=== PATIENT | female | born 1960 | race Hispanic/Latino ===

== ENCOUNTER → 2018-11-05 | Day surgery (SDC) | payer OTHER ==
[~2018-11-05] MED LIST: FENTANYL CITRATE/PF 100MCG/2 ML INJ ONE; HYDROCHLOROTHIA25 MG PO; HYOSCYAMINE 0.125 MG TAB ONE; MIDAZOLAM HCL 2 MG/2 ML VIAL ONE; PROPOFOL IV EMULSION 10 MG/ML 50 ML VIAL ONE
--- OUTSIDE RECORDS SUMMARY | 2018-11-05 09:15 | XMS REPORT ---
Author [facility] Address Unknown Phone Unavailable Care Team Providers Care Imaging Analyst Name Role Phone Unavailable Unavailable Problems This patient has no known problems. Allergies, Adverse Reactions, Alerts This patient has no known allergies or adverse reactions. Medications This patient has no known medications. Results Test Description Test Time Test Comments Text Results Atomic Results Result Comments SCR MAMM BILATERAL TATIANA CAD DIGITAL 2018-05-29 10:23:44 - SCR MAMM BILATERAL TATIANA CAD DIGITALBILATERAL DIGITAL SCREENING MAMMOGRAM 3D/2D WITH CAD: 05/29/2018CLINICAL: Asymptomatic. Current mammographic images were evaluated by either a Xiimo M-Vu or an iCAD version 7.2 computer aided detection system. Comparison is made to exams dated 04/26/2017 mammogram, 04/18/2016 mammogram, and 01/24/2015 mammogram - [facility]. There are scattered fi broglandular tissues in both breasts. There is a biopsy clip in the left breast. No suspicious mass, architectural distortion, malignant type calcification, or lymph node abnormality detected. Breast architecture is stable compared to prior exams.IMPRESSION: NEGATIVEThere is no mammographic evidence of malignancy. Resume annual screening mammography in one year. Rick Hyatt M.D. ss/penrad:05/29/2018 10:23:44 Director Ship: Faith SLOAN, [facility]: BIRADS 1-2 Normal Mammogram BI-RADS: 1 Negative
[2018-11-05 15:30] VITALS: BP 147/91
--- NOTE | 2018-11-05 16:06 | Operative Report ---
DATE OF PROCEDURE: 11/05/2018 SURGEON: Johnnie Kingsley MD PROCEDURES: Colonoscopy and polypectomy. INDICATIONS FOR COLONOSCOPY: Colorectal cancer screening. MEDICATIONS: The patient was done under MAC, please see anesthesiologist's note. PROCEDURE IN DETAIL: With the patient in the left lateral decubitus position, a flexible fiberoptic Olympus colonoscope was inserted into the rectum with ease and advanced all the way to the cecum. One minute polyp was removed per the cold biopsy forceps from the cecum. The rest of the ascending colon, transverse, descending, and sigmoid other than for some diverticular disease appeared to be within normal limits. The rectum was within normal limits. The scope was then retroflexed into the distal rectum and small internal hemorrhoids were noted, none of which was actively bleeding. The scope was then straightened out, it was subsequently withdrawn, and the patient tolerated the procedure well. IMPRESSION: 1. Cecal polyp removed per biopsy forceps. 2. Diverticulosis. 3. Internal hemorrhoids, none actively bleeding. PLAN: Follow up histology. Initiate high-fiber, low-fat diet. Initiate high-fiber supplement. The patient might benefit from a followup colonoscopy in 5 years. Johnnie Kingsley MD [facility]/[facility]ATUMA /[id number] cc: Sheila Caruso MD
== END | disposition home or self-care (01) ==
LOC: OR 09:12
PROVIDERS: ATTEND Internal Medicine Gastroenterology
DX: Z12.11 Encounter for screening for malignant neoplasm of colon (principal); D12.0 Benign neoplasm of cecum; K57.30 Diverticulosis of large intestine without perforation or abscess without bleeding; K64.8 Other hemorrhoids; I10 Essential (primary) hypertension; Z01.810 Encounter for preprocedural cardiovascular examination; Z68.35 Body mass index [BMI] 35.0-35.9, adult; Z80.0 Family history of malignant neoplasm of digestive organs
CPT/HCPCS: 45380; 93005; J2250; J2704; J3010; 45378; 45384